=== PATIENT | female | born 1990 | race Two or more races ===

== ENCOUNTER 2019-11-11 13:47 | Inpatient (IN) | payer OTHER ==
[~2019-11-11] VITALS: Ht 160 cm; Wt 72.6 kg
[2019-11-11] MEDS ORDERED: DEXT 5%/LR + PITOCIN 20UNITS/L 1,000 ML IV SCH ×2 (13:53→15:31)
[2019-11-11] MEDS ORDERED: METHYLERGONOVINE MALEATE 0.2 MG/ML IM PRN (14:00)
[2019-11-11] MEDS ORDERED: CARBOPROST TROMETHAMINE 250 MCG/ML AMPUL IM PRN (14:00)
[2019-11-11] MEDS ORDERED: PREN-55 MT (15:02)
[2019-11-11] MEDS ORDERED: IBUPROFEN 400MG TABLET PO PRN (15:45)
[2019-11-11] MEDS ORDERED: RHO(D) IMMUNE GLOBULIN 300 MCG/SYR IM PRN (15:45)
[2019-11-11 16:00] VITALS: BP 107/66
[2019-11-11 16:20] LABS: HEMATOCRIT. 31.1 % (36.0-48.0); HEMOGLOBIN. 10.2 g/dL (12.0-16.0); MEAN CORPUSCULAR HEMOGLOBIN 27.1 pg (28.0-32.0); MEAN CORPUSCULAR VOLUME 82.6 fL (81.0-99.0); MEAN PLATELET VOLUME 9.7 fl (7.4-10.4); PLATELET 214 x1000/uL (130-400); RED BLOOD CELL COUNT 3.77 mill/uL (4.2-5.4); RED CELL DISTRIBUTION WIDTH 13.7 % (11.6-14.6)
[2019-11-11 16:21] LABS: INR 0.9; PARTIAL THROMBOPLASTIN TIME 26.7 sec (23.4-31.0); PROTHROMBIN TIME 9.6 sec (9.6-11.0)
[2019-11-11 16:30] VITALS: BP 116/81
[2019-11-11 16:48] LABS: HEPATITIS B SURFACE ANTIGEN NEGATIVE
[2019-11-11] MEDS: IBUPROFEN 800MG TABLET PO PRN (16:48)
[2019-11-11 17:30] LABS: PLATELET ESTIMATE NORMAL
[2019-11-11 22:00] VITALS: BP 108/78
[2019-11-11 22:48] LABS: CLARITY URINE CLEAR (CLEAR); COLOR URINE YELLOW (YELLOW); KETONES URINE TRACE (NEGATIVE); LEUKOCYTE ESTERASE URINE NEGATIVE (NEGATIVE); NITRITE URINE NEGATIVE (NEGATIVE); OCCULT BLOOD URINE 2+ (NEGATIVE); PH URINE 6.5 (4.5-8.0); PROTEIN URINE 1+ (NEGATIVE); SPECIFIC GRAVITY URINE 1.023 (1.005-1.030); UROBILINOGEN URINE 0.2 E.U./dL (0.2-1.0)
[2019-11-11 23:00] LABS: *AMPHETAMINES SCREEN URINE NEGATIVE (NEGATIVE); *BARBITURATES SCREEN URINE NEGATIVE (NEGATIVE); *BENZODIAZEPINES SCREEN URINE NEGATIVE (NEGATIVE); *COCAINE SCREEN URINE NEGATIVE (NEGATIVE)
[2019-11-11 23:01] LABS: CANNABINOID URINE SCREEN NEGATIVE (NEGATIVE); METHADONE URINE SCREEN NEGATIVE (NEGATIVE); PHENCYCLIDINE URINE SCREEN NEGATIVE (NEGATIVE)
[2019-11-12 05:20] VITALS: BP 105/76
[2019-11-12 07:29] LABS: BASOPHILS % 0.3 % (0.0-2.0); EOSINOPHILS % 1.3 % (0.0-5.0); HEMATOCRIT. 26.7 % (36.0-48.0); LYMPHOCYTES % 22.8 % (20.0-50.0); MEAN CORPUSCULAR HEMOGLOBIN 27.5 pg (28.0-32.0); MEAN CORPUSCULAR VOLUME 81.6 fL (81.0-99.0); MEAN PLATELET VOLUME 9.4 fl (7.4-10.4); MONOCYTES % 6.3 % (2.0-8.0); NEUTROPHILS % 69.3 % (40.0-76.0); PLATELET 190 x1000/uL (130-400); RED BLOOD CELL COUNT 3.28 mill/uL (4.2-5.4); RED CELL DISTRIBUTION WIDTH 13.8 % (11.6-14.6)
[2019-11-12 08:00] VITALS: BP 110/69
[2019-11-12 15:45] VITALS: BP 101/78
[2019-11-12 19:01] LABS: OPIATES URINE SCREEN NEGATIVE (NEGATIVE)
[2019-11-12 20:00] VITALS: BP 119/67
[2019-11-12] MEDS: IBUPROFEN 800MG TABLET PO PRN (20:11)
[2019-11-13 04:00] VITALS: BP 103/65
[2019-11-13] MEDS ORDERED: FERR325T6 MT (06:41)
[2019-11-13] MEDS ORDERED: IBUP-2030 PO (06:41)
[2019-11-13 08:37] VITALS: BP 111/72
== END 2019-11-13 11:39 | disposition home or self-care (01) | DRG 776 ==
LOC: 8 EST LDRP 13:47 → 8EST 15:49
PROVIDERS: ADMIT Obstetrics & Gynecology; ATTEND Obstetrics & Gynecology
DX: Z39.0 Encounter for care and examination of mother immediately after delivery (principal); O90.81 Anemia of the puerperium; D64.9 Anemia, unspecified
CPT/HCPCS: 36415; 80305; 81003; 85025; 86592; 86703; 86762; 86850; 86900; 87340; 99281; J2590